=== PATIENT | male | born 1955 | race Caucasian/White ===

== ENCOUNTER → 2020-03-27 | Outpatient (CLI) | payer OTHER ==
[~2020-03-27] MED LIST: ACIDOPHILUS1 EAC5 PO; ALPRAZOLAM 0.0.25 M1 PO; CARVEDILOL3.125 MG PO; CENTRUM SILVER1 EAC5 PO; ESCITALOPRAM OX10 MG PO; EZETIMIBE10 MG PO; LISINOPRIL5 MG PO; LOW DOSE ASPIRI81 M1 PO; MELOXICAM15 MG PO; PREGABALIN300 MG PO; ROSUVASTATIN CA40 MG PO; TAMSULOSIN HCL0.4 MG PO
== END ==
LOC: LAB 09:13
PROVIDERS: ATTEND Orthopaedic Surgery
DX: Z01.812 Encounter for preprocedural laboratory examination (principal); Z20.828 Contact with and (suspected) exposure to other viral communicable diseases

== ENCOUNTER 2020-04-02 11:13 | Day surgery (SDC) | payer OTHER ==
[2020-03-27 10:57] LABS: HEMATOCRIT 43.1 % (42.0-52.0); HEMOGLOBIN 14.4 gm/dL (14.0-18.0); MCHC 33.5 g/dL (28.0-37.0); MCV 92.6 fL (80.0-100.0); RBC 4.66 mil/uL (4.50-6.00); RDW 13.7 % (10.5-14.5); WBC 5.6 thou/uL (4.0-11.0)
[2020-03-27 10:59] LABS: URINE BILIRUBIN NEGATIVE (Negative); URINE BLOOD 1+ (Negative); URINE CLARITY CLEAR; URINE COLOR YELLOW; URINE GLUCOSE-RANDOM* NEGATIVE (Negative); URINE KETONES NEGATIVE (Negative); URINE LEUKOCYTES-REFLEX NEGATIVE (Negative); URINE NITRITE-REFLEX NEGATIVE (Negative); URINE PROTEIN (DIPSTICK) NEGATIVE (Negative); URINE UROBILINOGEN 0.2 E.U./dl (0.2-1.0)
[2020-03-27 11:05] LABS: CALCIUM 9.9 mg/dL (8.5-10.1); CREATININE 1.2 mg/dL (0.7-1.3); POTASSIUM 4.4 mmol/L (3.5-5.1)
[2020-03-27 11:15] LABS: INR 1.1; PROTIME 10.8 Seconds (9.3-11.4)
[2020-03-27 11:40] LABS: SQUAMOUS None Seen /LPF (0-3)
[2020-03-27 11:41] LABS: BACTERIA-REFLEX None Seen /HPF (None Seen); CASTS None Seen /LPF (None Seen); CRYSTALS None Seen /LPF (None Seen); URINE RBC None Seen /HPF (0-2); URINE WBC-REFLEX None Seen /HPF (0-5)
[~2020-04-02] VITALS: Ht 167.6 cm; Wt 110.2 kg
[2020-04-02 12:50] VITALS: BP 126/80
[2020-04-02 18:10] VITALS: BP 105/80
[2020-04-02 18:37] VITALS: BP 121/54
[2020-04-02 19:00] VITALS: BP 97/67
[2020-04-02 20:10] VITALS: BP 118/76
--- NOTE | 2020-04-02 20:11 | NUR ---
PATIENT ARRIVED ON UNIT TO ROOM 437 AT 18:05 REPORT FROM POST OP NURSE. PT ALERT XS 4 V.S.98.0 20 92 105/80. HEIGHT 5'6" WEIGHT 243.7 PT STATES NO PAIN OR RESP DISTRESS. MADE PATIENT COMFORTABLE NOC TO COMPLETE ADMISSION.
[2020-04-02 21:05] VITALS: BP 117/74
--- NOTE | 2020-04-03 04:45 | NUR ---
ASSUMED PT CARE AT 1900.PT DENIED PAIN SO FAR.PT STILL NOT ABLE TO VOID.BLADDER SACN AT 0330 SHOWED [id number].PT STATED THAT HE URINATES BETTER STANDING.PT DENIED ANY DISCOMFORT.URINAL AT BEDSIDE.CALL LIGHT WITHIN REACH.
[2020-04-03 04:46] VITALS: BP 110/71
[2020-04-03 05:25] LABS: HEMOGLOBIN 13.3 gm/dL (14.0-18.0); MCH 30.8 pg (26.0-34.0); MCHC 32.4 g/dL (28.0-37.0); MCV 95.1 fL (80.0-100.0); RBC 4.31 mil/uL (4.50-6.00); RDW 13.8 % (10.5-14.5); WBC 8.5 thou/uL (4.0-11.0)
[2020-04-03 08:51] VITALS: BP 101/65
--- NOTE | 2020-04-03 10:25 | NUR ---
ASSESSMENT: CM REVIEWED CHART AND SPOKE WITH PT. PT IS S/P LEFT TKA. PT REPORTS LIVING AT HOME WITH HIS IN A HOUSE. PT REPORTS ABOUT 2 STEPS TO ENTER THE HOME AND ALL HIS NEEDS ON THE MAIN LEVEL. PT REPORTS THAT HE HAS A CANE AND WALKER AT HOME TO ASSIST WITH AMBULATION. PT HAS OUTPT THERAPY ARRANGED AT [facility] OFF OF [address] AND FIRST APPT IS ON THURSDAY. CM DISCUSSED ROLE. PT DOES NOT ANTICIPATE ANY NEEDS FROM CM. JAMES WORKED WITH PHYSICAL THERAPY THIS AM AND BUCKLED AND STATED LIKELY NOT DISCHARGE UNTIL 1-2 DAYS. CM WILL CONTINUE TO FOLLOW TO ASSIST NEEDED.
[2020-04-03 16:56] VITALS: BP 94/63
--- NOTE | 2020-04-03 17:31 | NUR ---
PT CARE ASSUMED AT 0700. A&Ox4. PT PAIN CONTROLLED WELL WITH PAIN MEDICATION ON BOARD. PT BUCKLED WITH PT IN THE AM AND AGAIN IN THE AFTERNOON. PT PENDING DISCAHRGE FOR TOMORROW (04/04) PER PT CLEARANCE. IV PATENT WITH NO REDNESS OR EDEMA, SALINE LOCKED. SCD'S/TEDHOSES.POLAR PACK IN PLACE. INCENTIVE SPIROMETER AT [facility]. CARVEDILOL HELD 1700 DOSE BP 96/63. FALL PROTOCOL IN PLACE. CALL LIGHT IN REACH. PT UP IN RECLINER ALL DAY. WILL CONTINUE TO MONITOR.
[2020-04-03 20:10] VITALS: BP 110/64
--- NOTE | 2020-04-04 00:56 | NUR ---
ASSUMED PT CARE AT SHIFT CHANGE, GAVE REPORT TO CHELSEY (CHIQUI).
--- NOTE | 2020-04-04 02:05 | NUR ---
ASSUMED PATIENT CARE AT APPROXIMATELY 0100.
[2020-04-04 03:48] VITALS: BP 103/61
--- NOTE | 2020-04-04 04:53 | NUR ---
ASSUME PATIENT CARE AT APPROXIMATELY 0100. VITAL SIGNS STABLE WITH PATIENT HAVING NO COMPLAINTS OF NAUSEA. PATIENT DID COMPLAIN OF MILD PAIN IN LEFT KNEE WHICH WAS TREATED APPROPRIATELY WITH NON PHARMACOLOGICAL INTERVENTION. FULLY ALERT AND ORIENTED, PATIENT CALLS APPROPRIATELY FOR NEEDS. POSSIBLE DISCHARGE TODAY. CONTINUE PLAN OF CARE.
[2020-04-04 05:18] LABS: HEMATOCRIT 33.8 % (42.0-52.0); MCH 31.6 pg (26.0-34.0); MCHC 33.5 g/dL (28.0-37.0); MCV 94.5 fL (80.0-100.0); RBC 3.58 mil/uL (4.50-6.00); RDW 14.1 % (10.5-14.5); WBC 6.4 thou/uL (4.0-11.0)
[2020-04-04 05:30] LABS: HEMOGLOBIN 11.3 gm/dL (14.0-18.0)
[2020-04-04 07:26] VITALS: BP 94/58
[2020-04-04 11:43] VITALS: BP 94/58
[2020-04-04 16:35] VITALS: BP 94/58
--- NOTE | 2020-04-04 16:41 | NUR ---
DISCHARGE PAPERS REVIEWED SIGNED AND COPY IN CHART. IV ACSESS DCD. ORTHO FOLDER GIVEN TO PATIENT. ALL BELONGINGS PACKED AND SENT WITH PATIENT. NO PAIN OR RESP DISTRESS AT DISCHARGE.
--- NOTE | 2020-04-10 12:48 | O ---
[facility] [place] [address] OPERATIVE REPORT Name: GIOVANNY ALVA Room #: DEP [facility] Nuria.Rishabh.#: [id number] Admission: 04/02/20 Attend Phys: Michael Garcia MD Discharge: 04/04/20 Date of : 51 Report #: [id number] THIS REPORT FOR: cc: FAM - Family physician unknown FAM - Family physician unknown Michael Garcia MD ~ DATE OF SERVICE: 04/02/2020 PREOPERATIVE DIAGNOSIS: Left knee osteoarthritis. POSTOPERATIVE DIAGNOSIS: Left knee osteoarthritis. PROCEDURE: Left total knee arthroplasty using Navio robotic assistance. SURGEON: Michael Garcia MD. EXTRACTION OPERATOR: Melita Strauss PA-C. INDICATIONS FOR EXTRACTION OPERATOR: Throughout the case, extensive retraction and manipulation of the knee was required. This was afforded to me by my occupational therapist assistants. ANESTHESIA: General with an adductor canal block. IMPLANTS: [employer]hew size 7 Oxinium Journey II BCS femur, size 5 tibia, size 10 polyethylene and size 32 patella. TOURNIQUET TIME: 52 minutes. ESTIMATED BLOOD LOSS: 25 mL. COMPLICATIONS: None. SPECIMENS: None. CONDITION UPON LEAVING THE OPERATING ROOM: Stable. INDICATIONS FOR PROCEDURE: The patient is a 64-year-old gentleman with severe left knee osteoarthritis, who failed conservative measures for this and after discussion with him, he elected for left total knee arthroplasty. DESCRIPTION OF PROCEDURE: Risks, benefits, alternatives, complications were discussed in detail with the patient including but not limited to risk of anesthesia, risk of damage to nerves, arteries, blood vessels, risk for infection, bleeding, risk for continued knee pain, need for reoperation. Informed consent was obtained from the patient. Left knee was appropriately [address] [address] OPERATIVE REPORT Name: GIOVANNY ALVA Room #: DEP [facility] M.R.#: [id number] Admission: 04/02/20 Attend Phys: Michael Garcia MD Discharge: 04/04/20 Date of : 51 Report #: [id number] marked in the preoperative holding area. IV Ancef was given for preoperative antibiotics. He was brought to the operating room and placed in supine position on operating room table. LMA anesthesia was induced without complication. Tourniquet was placed on the left thigh. Left lower extremity was prepped and draped in normal sterile fashion. Timeout was performed properly identifying the patient and procedure as well as the instrumentation and implants. All in the operating room were in agreement. Left lower extremity was exsanguinated, tourniquet was inflated. Tourniquet time was 55 minutes. Standard midline approach to knee was made with 10 blade through the skin. Dissection was taken down sharply to the fascia and deep flaps were developed medially and laterally. Fresh 10 blade was used to make a medial parapatellar arthrotomy and the knee was inspected. There was severe tricompartment osteoarthritis. ACL and PCL were removed sharply. Reference pins were placed in the femur and the tibia. The knee was then digitally mapped using the [employer] robotic system. Intraoperative plan was made and we sized the size 7 femur and a size 5 tibia and a 10 spacer. After acceptance of the intraoperative plan, the distal femoral cut was made with a Navio bur. Distal femoral cutting block was pinned in place and chamfer cuts were made. Attention was turned to the tibia. Remainder of the menisci removed with Bovie cautery. Tibial resection guide was pinned in place using the Navio for placement and tibial resection was made. Flexion and extension gaps were then checked and found to have good balance in flexion and extension both medially and laterally. Tibia was sized, found to be a size 5. A size 5 tibial trial was placed, pinned and punched. Size 7 femoral trial was placed and box cut was made. This was then trialed with a size 10 polyethylene. Size 10 polyethylene demonstrated 1 millimeter laxity medially and laterally throughout range of motion. There was up to 2 mm in mid flexion medially, but this was deemed stable. A 9 mm of bone was resected from the posterior surface of the patella and a size 32 patellar trial button was placed. Knee was taken through range of motion, found to be stable, found to have good patellar tracking. Trial components were removed. Bony ends were thoroughly irrigated with normal saline. A final size 5 tibia, size 7 Journey II BCS Oxinium femur, size 32 patella were cemented in place using standard cementation techniques. While the cement cured, a periarticular injection consisting of morphine, ropivacaine, epinephrine, Toradol was placed around the knee joint capsule. After the cement cured, tourniquet was deflated. Hemostasis was obtained with Bovie cautery. A final size 10 polyethylene was placed. A gram of vancomycin was placed deep in the joint. The fascia was closed with 0 Vicryl, skin was closed with 2-0 Vicryl, skin staple and a DIAZ dressing was applied. The patient tolerated this procedure well and went to recovery room under care of anesthesia postoperatively. <ELECTRONICALLY SIGNED> By: Michael Garcia MD 04/10/20 [id number] 1715 Michael Garcia MD /nt
== END 2020-04-04 12:35 | disposition home or self-care (01) ==
LOC: 4S 11:13 → OR 11:13 → TBA 11:30 → OR 13:11 → 4S 15:58 → OR 04-04 12:35
PROVIDERS: ATTEND Orthopaedic Surgery
DX: M17.12 Unilateral primary osteoarthritis, left knee (principal); M25.562 Pain in left knee; I10 Essential (primary) hypertension; I25.2 Old myocardial infarction; E78.5 Hyperlipidemia, unspecified; F32.9 Major depressive disorder, single episode, unspecified; F41.9 Anxiety disorder, unspecified; G47.30 Sleep apnea, unspecified; K21.9 Gastro-esophageal reflux disease without esophagitis; Z98.890 Other specified postprocedural states; Z79.899 Other long term (current) drug therapy; Z85.72 Personal history of non-Hodgkin lymphomas; Z79.82 Long term (current) use of aspirin; Z87.891 Personal history of nicotine dependence
CPT/HCPCS: 10102; 50010; 50101; 50415; 50954; 51130; 51225; 51320; 51412; 52001; 52282; 53000; 53078; 53365; 56527; 56528; 57095; 57103; 57110; 57127; 57180; 62110; 62900; 64043; 65060; 70005

== ENCOUNTER 2020-04-07 21:16 | Emergency (ER) | payer OTHER ==
[~2020-04-07] VITALS: Ht 170.2 cm; Wt 106.6 kg
[2020-04-07] MEDS ORDERED: NORCO 10-325 T1 EACH PO (21:29)
[2020-04-07] MEDS ORDERED: MORPHINE SULFAT15 M3 PO (21:30)
[2020-04-07 22:23] LABS: ABSOLUTE NEUTROPHILS 6.1 thou/uL (1.4-8.2); BASOPHILS 0.5 % (0.0-2.0); EOSINOPHILS 2.5 % (0.0-3.0); HEMATOCRIT 29.4 % (42.0-52.0); HEMOGLOBIN 9.9 gm/dL (14.0-18.0); LYMPHOCYTES 6.2 % (24.0-44.0); MCH 31.5 pg (26.0-34.0); MCHC 33.8 g/dL (28.0-37.0); MCV 93.3 fL (80.0-100.0); MONOCYTES 12.2 % (1.0-8.0); PLATELET COUNT 155 thou/uL (150-400); POLYS 78.6 % (36.0-66.0); RBC 3.15 mil/uL (4.50-6.00); RDW 13.3 % (10.5-14.5); WBC 7.7 thou/uL (4.0-11.0)
[2020-04-07 22:26] LABS: CALCIUM 8.7 mg/dL (8.5-10.1); CREATININE 1.3 mg/dL (0.7-1.3); POTASSIUM 4.2 mmol/L (3.5-5.1)
[2020-04-07 22:51] LABS: DIRECT BILIRUBIN 0.3 mg/dL (<0.1-0.2); TOTAL BILIRUBIN 0.9 mg/dL (0.2-1.0); TOTAL PROTEIN 5.8 g/dL (6.4-8.2)
[2020-04-08 01:00] VITALS: BP 117/67
== END 2020-04-08 01:06 | disposition home or self-care (01) ==
LOC: ER 21:16
PROVIDERS: Emergency Medicine
DX: M96.89 Other intraoperative and postprocedural complications and disorders of the musculoskeletal system (principal); R22.42 Localized swelling, mass and lump, left lower limb; I25.2 Old myocardial infarction; I10 Essential (primary) hypertension; E78.00 Pure hypercholesterolemia, unspecified; Z87.891 Personal history of nicotine dependence; Z79.899 Other long term (current) drug therapy; Z79.82 Long term (current) use of aspirin